=== PATIENT | female | born 1985 | race Caucasian/White ===

== ENCOUNTER → 2017-06-18 | Outpatient (CLI) | payer OTHER ==
--- NOTE | 2017-06-19 06:31 | DI ---
XR FOOT COMPLETE MIN 3VW,06/18/2017 9:58 AM: Clinical History: Right foot Previous Exam: None at this facility. Findings: 3 views of the right foot are obtained, and demonstrate anatomic alignment without fractures. The sof t tissues are unremarkable. Impression: Normal right foot.
== END ==
LOC: ORTHO 10:06
PROVIDERS: ATTEND Orthopaedic Surgery
DX: M79.671 Pain in right foot (principal); W20.8XXA Other cause of strike by thrown, projected or falling object, initial encounter
CPT/HCPCS: 73630